=== PATIENT | male | born 1990 | race African-American/Black ===

== ENCOUNTER 2025-01-11 14:14 | Emergency (ER) | payer SELFPAY ==
[~2025-01-11] VITALS: Ht 185.4 cm; Wt 79.4 kg
[2025-01-11 14:21] VITALS: O2SAT 100
[2025-01-11 14:25] VITALS: BP 131/72; PULSE 83; RESP 16; TEMP 37.1; O2SAT 100
== END 2025-01-11 17:52 | disposition left against medical advice (07) ==
LOC: ER 14:14
DX: N39.0 Urinary tract infection, site not specified (principal); Z53.21 Procedure and treatment not carried out due to patient leaving prior to being seen by health care provider

== ENCOUNTER 2025-01-13 02:22 | Emergency (ER) | payer SELFPAY ==
[~2025-01-13] VITALS: Ht 182.9 cm; Wt 88.9 kg
[2025-01-13 02:31] VITALS: O2SAT 99
[2025-01-13 03:46] LABS: BASOPHILS % 0.4 % (0.0-2.0); EOSINOPHILS % 2.5 % (0.0-5.0); HEMATOCRIT. 44.2 % (42.0-52.0); HEMOGLOBIN. 15.1 g/dL (14.0-18.0); LYMPHOCYTES % 18.7 % (20.0-50.0); MEAN CORPUSCULAR HEMOGLOBIN 30.8 pg (28.0-32.0); MEAN CORPUSCULAR HGB CONC 34.1 g/dL (31.0-37.0); MEAN CORPUSCULAR VOLUME 90.2 fL (80.0-94.0); MEAN PLATELET VOLUME 8.5 fl (7.4-10.4); MONOCYTES % 6.6 % (2.0-8.0); NEUTROPHILS % 71.8 % (40.0-76.0); PLATELET 197 x1000/uL (130-400); RED BLOOD CELL COUNT 4.89 mill/uL (4.7-6.1); RED CELL DISTRIBUTION WIDTH 13.8 % (11.6-14.6); WHITE BLOOD COUNT 9.2 x1000/uL (4.5-11.0)
[2025-01-13 03:52] LABS: CHLORIDE 109 mEq/L (98-107); POTASSIUM 3.8 mEq/L (3.5-5.1); SODIUM 141 mEq/L (136-145)
[2025-01-13 03:53] LABS: CARBON DIOXIDE 27 mEq/L (21-32)
[2025-01-13 03:54] LABS: CALCIUM 8.8 mg/dL (8.7-10.4)
[2025-01-13 03:58] LABS: CREATININE 1.2 mg/dL (0.6-1.3); GLUCOSE 122 mg/dL (70-105)
[2025-01-13 03:59] LABS: UREA NITROGEN BLOOD 23 mg/dL (9-23)
[2025-01-13 04:39] LABS: CLARITY URINE CLOUDY (CLEAR); COLOR URINE DARK YELLOW (YELLOW); GLUCOSE URINE NEGATIVE (NEGATIVE); KETONES URINE TRACE (NEGATIVE); LEUKOCYTE ESTERASE URINE NEGATIVE (NEGATIVE); NITRITE URINE NEGATIVE (NEGATIVE); OCCULT BLOOD URINE NEGATIVE (NEGATIVE); PH URINE 5.5 (4.5-8.0); PROTEIN URINE TRACE (NEGATIVE); SPECIFIC GRAVITY URINE 1.034 (1.005-1.030)
[2025-01-13] MEDS ORDERED: IBUP-2029 MT (04:53)
[2025-01-13 05:06] LABS: RBC URINE 0-2 /hpf (0-2); SQUAMOUS EPITHELIAL CELL URINE RARE /lpf (RARE/1+); WBC URINE 0-2 /hpf (0-2)
[2025-01-13 05:07] LABS: BACTERIA URINE NONE SEEN
[2025-01-13] MEDS: IBUPROFEN 600MG TABLET PO NR (05:21)
[2025-01-13 05:25] VITALS: BP 130/60; PULSE 99; RESP 16; TEMP 37
== END 2025-01-13 05:30 | disposition home or self-care (01) ==
LOC: ER 02:55
DX: Z13.89 Encounter for screening for other disorder (principal); M79.606 Pain in leg, unspecified
CPT/HCPCS: 36415; 80048; 81003; 85025; 99283

== ENCOUNTER 2025-01-26 04:41 | Emergency (ER) | payer SELFPAY ==
[~2025-01-26] VITALS: Ht 182.9 cm; Wt 80.0 kg
[~2025-01-26 04:41] MED LIST: IBUP-2029 MT
[2025-01-26 04:54] VITALS: TEMP 36.8; O2SAT 100
[2025-01-26] MEDS: AZITHROMYCIN 500 MG TABLET PO ONE (06:23)
[2025-01-26] MEDS: CEFTRIAXONE SODIUM 500MG VIAL IM ONE (06:26)
[2025-01-26] MEDS ORDERED: DOXY100C74 MT (06:33)
[2025-01-26 07:05] VITALS: BP 134/75; PULSE 83; RESP 18; O2SAT 99
[2025-01-26 07:40] LABS: CLARITY URINE CLOUDY (CLEAR); COLOR URINE YELLOW (YELLOW); GLUCOSE URINE NEGATIVE (NEGATIVE); KETONES URINE NEGATIVE (NEGATIVE); LEUKOCYTE ESTERASE URINE NEGATIVE (NEGATIVE); NITRITE URINE NEGATIVE (NEGATIVE); OCCULT BLOOD URINE NEGATIVE (NEGATIVE); PH URINE 7.5 (4.5-8.0); PROTEIN URINE NEGATIVE (NEGATIVE); SPECIFIC GRAVITY URINE 1.024 (1.005-1.030)
[2025-01-26 08:01] LABS: AMORPHOUS SEDIMENT URINE 2+ /lpf; BACTERIA URINE 1+; RBC URINE NONE SEEN /hpf (0-2); SQUAMOUS EPITHELIAL CELL URINE NONE SEEN /lpf (RARE/1+); WBC URINE 0-2 /hpf (0-2); YEAST URINE NONE SEEN
[2025-01-29 04:07] LABS: CHLAMYDIA TRACHOMATIS NAA Negative (Negative); NEISSERIA GONORRHOEAE NAA Negative (Negative)
== END 2025-01-26 07:05 | disposition home or self-care (01) ==
LOC: ER 04:41
DX: N34.2 Other urethritis (principal); Z79.899 Other long term (current) drug therapy
CPT/HCPCS: 99283; 87491; 87591; 81003; 96372; J0696